=== PATIENT | male | born 1950 | race African-American/Black ===

== ENCOUNTER 2017-05-08 18:22 | Inpatient (IN) | payer OTHER ==
[2017-05-08 19:06] VITALS: BMI 23.6
--- NOTE | 2017-05-08 19:56 | HP ---
Admission ROS [facility] Chief Complaint: i am here for rehab form alcohol,and marijuana Allergies/Adverse Reactions: Allergies Allergy/AdvReac Type Severity Reaction Status Date / Time Penicillins Allergy Severe Swelling Verified 05/08/17 23:07 of the Face History of Present Illness: this 66 years old male with alcohol and marijuana dependence,seking rehab,last treatment in [facility] from 04/24/17 to 05/08/17 neuropathy longest period of sobriety for 11 years nicotine dependence Exam Limitations: No Limitations - Ebola screening Have you traveled outside of the country in the last 21 days: No Have you had contact with anyone from an Ebola affected area: No Have you been sick,other than usual withdrawal symptoms: No Do you have a fever: No - Review of Systems Constitutional: No Symptoms Reported EENT: reports: No Symptoms Reported Respiratory: reports: No Symptoms reported Cardiac: reports: No Symptoms Reported GI: reports: No Symptoms Reported : reports: No Symptoms Reported Musculoskeletal: reports: No Symptoms Reported Integumentary: reports: No Symptoms Reported Neuro: reports: No Symptoms reported Endocrine: reports: No Symptoms Reported Hematology: reports: No Symptoms Reported Psychiatric: reports: No Sypmtoms Reported Other Systems: Reviewed and Negative Patient History - Patient Medical History Hx Anemia: No Hx Asthma: No Hx Chronic Obstructive Pulmonary Disease (COPD): No Hx Cancer: No Hx Cardiac Disorders: No Hx Congestive Heart Failure: No Hx Hypertension: No Hx Hypercholesterolemia: No Hx Pacemaker: No HX Cerebrovascular Accident: No Hx Seizures: No Hx Dementia: No Hx Diabetes: No Hx Gastrointestinal Disorders: No Hx Liver Disease: No Hx Genitourinary Disorders: No Hx Sexually Transmitted Disorders: No Hx Renal Disease (ESRD): No Hx Thyroid Disease: No Hx Human Immunodeficiency Virus (HIV): No (last 03/06 negative) Hx Hepatitis C: No Hx Depression: No Hx Suicide Attempt: No Hx Bipolar Disorder: No Hx Schizophrenia: No Other Medical History: no suicidal,no homicidal - Patient Surgical History Other Surgical History: strabismus right 2002 surgery - PPD History Previous Implant?: Yes Documented Results: Positive w/o proof PPD to be Administered?: No - Smoking Cessation Smoking history: Current every day smoker Have you smoked in the past 12 months: Yes Aproximately how many cigarettes per day: 10 Cigars Per Day: 0 Hx Chewing Tobacco Use: No Initiated information on smoking cessation: Yes 'Breaking Loose' booklet given: 05/08/17 - Substance & Tx. History Hx Alcohol Use: Yes Hx Substance Use: Yes Substance Use Type: Alcohol, Marijuana Hx Substance Use Treatment: Yes ([facility] 04/24/17 to 05/08/17) - Substances Abused Alcohol Route: Oral Frequency: Daily Amount used: 1/2 gallon of whisky Age of first use: 11 Date of Last Use: 04/23/17 Marijuana/Hashish Route: Smoking Frequency: Daily Amount used: 20$ Age of first use: 11 Date of Last Use: 04/23/17 Family Disease History - Family Disease History Family Disease History: Diabetes: Mother (alcohol,), Other: Mother Admission Physical Exam [facility] - Vital Signs Vital Signs: Vital Signs - 24 hr 05/08/17 18:47 Temperature 98.6 F Pulse Rate 81 Respiratory 20 Rate Blood Pressure 146/95 - Physical General Appearance: Yes: Within Normal Limits HEENTM: Yes: Normal ENT Inspection, PLACIDO, Pharynx Normal Respiratory: Yes: Lungs Clear Neck: Yes: Within Normal Limits, Supple, Trachea in good position Breast: Yes: Within Normal Limits Cardiology: Yes: Within Normal Limits, Regular Rhythm, Regular Rate, S1, S2 Abdominal: Yes: Within Normal Limits, Normal Bowel Sounds, Non Tender, Flat, Soft Genitourinary: Yes: Within Normal Limits Back: Yes: Within Normal Limits Musculoskeletal: Yes: Within Normal Limits Extremities: Yes: Within Normal Limits, Normal Range of Motion Neurological: Yes: Within Normal Limits, research environmental engineer II-XII NML intact, Alert, Motor Strength 5/5 Integumentary: Yes: Within Normal Limits Lymphatic: Yes: Within Normal Limits - Diagnostic (1) Alcohol dependence Current Visit: Yes Status: Acute (2) Cannabis dependence Current Visit: Yes Status: Acute (3) Neuropathy Current Visit: Yes Status: Acute (4) Nicotine dependence Current Visit: Yes Status: Acute Cleared for Admission [facility] - Detox or Rehab Claeared for Rehab Admission: Yes [facility] Breath Alcohol Content Breath Alcohol Content: 0 Urine Drug Screen - Results Urine Drug Screen Results: BZO-Benzodiazepines
[2017-05-08] MEDS ORDERED: ACETAMINOPHEN 325 MG TABLET (FP) PO PRN (20:21)
[2017-05-08] MEDS ORDERED: MENTHOL/PHENOL 1 EACH UD MM PRN (20:21)
[2017-05-08] MEDS ORDERED: diphenhydrAMINE HCL 50 MG CAPSULE PO PRN (20:21)
[2017-05-08] MEDS ORDERED: MAGNESIUM HYDROX 2400MG/30ML ORAL SUSPENSION 30 ML CUP PO PRN (20:21)
[2017-05-08] MEDS ORDERED: IBUPROFEN 400 MG TABLET (FP) PO PRN (20:21)
[2017-05-08] MEDS ORDERED: LOPERAMIDE HCL 2 MG CAPSULE PO PRN (20:21)
[2017-05-08] MEDS ORDERED: hydrOXYzine PAMOATE 25 MG CAPSULE (FP) PO PRN (20:21)
[2017-05-08] MEDS ORDERED: P-EPHED 60MG/TRIPROLIDI 2.5MG TABLET PO PRN (20:21)
[2017-05-08] MEDS ORDERED: MAG HYDROX/AL HYDROX/SIMETH 30 ML UNIT-DOSE CUP PO PRN (20:21)
[2017-05-08] MEDS ORDERED: MAGNESIUM CITRATE 300 ML BOTTLE PO PRN (20:21)
[2017-05-08] MEDS: THIAMINE HCL 100 MG TABLET (FP) PO SCH (23:17)
[2017-05-08 23:20] LABS: URINE APPEARANCE CLEAR; URINE BILIRUBIN NEGATIVE (NEGATIVE); URINE BLOOD NEGATIVE (NEGATIVE); URINE COLOR LTYELLOW; URINE GLUCOSE (UA) NEGATIVE (NEGATIVE); URINE KETONE NEGATIVE (NEGATIVE); URINE LEUK ESTERASE NEGATIVE (NEGATIVE); URINE NITRITE NEGATIVE (NEGATIVE); URINE PROTEIN NEGATIVE (NEGATIVE); URINE UROBILINOGEN NEGATIVE mg/dL (0.2-1.0)
--- NOTE | 2017-05-09 09:39 | HP ---
Psychiatrist Admission - Data Date of interview: 05/09/17 Admission source: [facility] Identifying data: This is the first 5n inpatient rehabilitaton admission for this 66 year old male jose maria Black male, unemployed and supported on SSI. Medical History: Neuropathy both legs, H/o fall in the train 20 days ago, surgery for strabismus 200(right side) smokes cigarettes 1/2 PPD. Psychiatric History: Patient reports he met with a psychiatrist after he was discharged from , states was on some medications he is unable to recall. HE currently on Trazodone 100 mg po hs for insomnia states while at [facility] detox. treatment. He denies feeling depressed or anxious. States his sleep is interrupted and unrefreshfull. Physical/Sexual Abuse/Trauma History: Denies history of sexual, physical and verbal abuse. 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 Additional Comment: Reports he was in sobriety 11 years, relapsed year ago after the of his girlfriend(was killed by a drunk freight delivery driver). Vital Signs: Vital Signs - 24 hr 05/08/17 05/08/17 05/09/17 18:47 22:22 00:30 Temperature 98.6 F 98.0 F Pulse Rate 81 83 Respiratory 20 18 18 Rate Blood Pressure 146/95 135/75 05/09/17 05/09/17 03:30 06:35 Temperature 97.4 F L Pulse Rate 74 Respiratory 18 18 Rate Blood Pressure 133/74 Allergies/Adverse Reactions: Allergies Allergy/AdvReac Type Severity Reaction Status Date / Time Penicillins Allergy Severe Swelling Verified 05/08/17 23:07 of the Face Date of last physical exam: 05/08/17 Concur with the findings of this exam: Yes - Substance Abuse/Tx History Hx Alcohol Use: Yes (1/2 gallon of whisky daily) Hx Substance Use: Yes Substance Use Type: Alcohol, Marijuana (daily use for $20) Hx Substance Use Treatment: Yes ([facility] ) - Admission Criteria Previous failed treatment: Yes Poor recovery environment: Yes Comorbidities: No Lacks judgement: Yes Mental Status Exam - Mental Status Exam Alert and Oriented to: Time, Place, Person Cognitive Function: Grossly Intact Patient Appearance: Well Groomed Mood: Hopeful Affect: Appropriate, Mood Congruent Patient Behavior: Appropriate, Cooperative Speech Pattern: Clear, Appropriate Voice Loudness: Normal Thought Process: Intact, Goal Oriented Hallucinations: Denies Suicidal Ideation: Denies Homicidal Ideation: Denies Insight/Judgement: Fair Sleep: Fair Appetite: Weight loss, Weight gain (75 lb over 7 months, relates it to his drinking and smoking marijuana) Muscle strength/Tone: Normal Gait/Station: Normal Psychiatric Findings - Problem List ([place] 1, 2,3) (1) Alcohol dependence Current Visit: Yes Status: Acute (2) Cannabis dependence Current Visit: Yes Status: Acute (3) Neuropathy Current Visit: Yes Status: Acute (4) Nicotine dependence Current Visit: Yes Status: Acute (5) Insomnia Current Visit: Yes Status: Acute - Initial Treatment Plan Initial Treatment Plan: will increase Trazodone 150 mg po hs, monitor progress as needed.
[2017-05-09] MEDS: PRENATAL VITAMINS W/ FOLIC ACID TABLET (FP) PO SCH (09:43)
[2017-05-09] MEDS: GABAPENTIN 600 MG PO SCH ×3 (09:44→21:16)
[2017-05-09] MEDS ORDERED: GABAPENTIN 600 MG PO SCH (10:00)
[2017-05-09 10:01] LABS: MCH 29.8 pg (25.7-33.7); MCHC 32.9 g/dl (32.0-35.9); MEAN CELL VOLUME 90.5 fl (80-96); MEAN PLT VOLUME 8.6 fl (7.5-11.1); PLATELET COUNT 216 K/MM3 (134-434); RDW 14.9 % (11.9-15.9); WHITE BLOOD COUNT 5.5 K/mm3 (4.0-10.0)
[2017-05-09 10:11] LABS: ALBUMIN 3.8 g/dl (3.4-5.0); ANION GAP 6 (8-16); CALCIUM 9.8 mg/dL (8.5-10.1); CO2 29 mmol/L (21-32)
[2017-05-09 10:15] LABS: ALK PHOS 84 U/L (45-117); BILIRUBIN,TOTAL 0.3 mg/dL (0.2-1.0); CREATININE 1.1 mg/dL (0.7-1.3); GLUCOSE,RANDOM 75 mg/dL (74-106); SGOT/AST 19 U/L (15-37); SGPT/ALT 24 U/L (12-78); TOT PROT 7.6 g/dl (6.4-8.2)
--- NOTE | 2017-05-09 16:38 | EKG ---
Test Reason : Blood Pressure : / mmHG Vent. Rate : 078 BPM Atrial Rate : 078 BPM P-R Int : 128 ms QRS Dur : 088 ms QT Int : 378 ms P-R-T Axes : 072 061 068 degrees QTc Int : 430 ms SINUS RHYTHM WITH SINUS ARRHYTHMIA WITH OCCASIONAL PREMATURE VENTRICULAR COMPLEXES OTHERWISE NORMAL ECG NO PREVIOUS ECGS AVAILABLE Confirmed by WAGNER COLES MD ([id number]) on 05/09/2017 4:37:46 PM Referred By: Confirmed By:WAGNER COLES MD
[2017-05-09] MEDS: traZODone HCL 50 MG TABLET (FP) PO SCH (21:16)
[2017-05-09] MEDS: THIAMINE HCL 100 MG TABLET (FP) PO SCH (21:17)
[2017-05-10] MEDS: GABAPENTIN 600 MG PO SCH ×3 (06:32→21:09)
[2017-05-10] MEDS: PRENATAL VITAMINS W/ FOLIC ACID TABLET (FP) PO SCH (10:00)
[2017-05-10] MEDS ORDERED: GABAPENTIN 300 MG CAPSULE (FP) PO SCH (10:00)
[2017-05-10] MEDS: traZODone HCL 50 MG TABLET (FP) PO SCH (21:09)
[2017-05-10] MEDS: THIAMINE HCL 100 MG TABLET (FP) PO SCH (21:09)
[2017-05-11] MEDS: GABAPENTIN 600 MG PO SCH ×3 (06:40→21:19)
[2017-05-11] MEDS: PRENATAL VITAMINS W/ FOLIC ACID TABLET (FP) PO SCH (10:00)
[2017-05-11] MEDS: THIAMINE HCL 100 MG TABLET (FP) PO SCH (21:20)
[2017-05-11] MEDS: traZODone HCL 50 MG TABLET (FP) PO SCH (21:20)
[2017-05-12] MEDS: GABAPENTIN 600 MG PO SCH ×3 (06:31→21:20)
[2017-05-12] MEDS: PRENATAL VITAMINS W/ FOLIC ACID TABLET (FP) PO SCH (09:55)
[2017-05-12] MEDS: THIAMINE HCL 100 MG TABLET (FP) PO SCH (21:20)
[2017-05-12] MEDS: traZODone HCL 50 MG TABLET (FP) PO SCH (21:20)
[2017-05-13] MEDS: GABAPENTIN 600 MG PO SCH ×3 (06:01→21:31)
[2017-05-13] MEDS: PRENATAL VITAMINS W/ FOLIC ACID TABLET (FP) PO SCH (09:57)
[2017-05-13] MEDS: traZODone HCL 50 MG TABLET (FP) PO SCH (21:31)
[2017-05-13] MEDS: THIAMINE HCL 100 MG TABLET (FP) PO SCH (21:31)
[2017-05-14] MEDS: GABAPENTIN 600 MG PO SCH ×3 (05:46→21:21)
[2017-05-14] MEDS: PRENATAL VITAMINS W/ FOLIC ACID TABLET (FP) PO SCH (09:55)
[2017-05-14] MEDS: THIAMINE HCL 100 MG TABLET (FP) PO SCH (21:20)
[2017-05-14] MEDS: traZODone HCL 50 MG TABLET (FP) PO SCH (21:21)
[2017-05-15] MEDS: GABAPENTIN 600 MG PO SCH ×3 (06:18→21:14)
[2017-05-15] MEDS: PRENATAL VITAMINS W/ FOLIC ACID TABLET (FP) PO SCH (09:46)
[2017-05-15] MEDS: THIAMINE HCL 100 MG TABLET (FP) PO SCH (21:13)
[2017-05-15] MEDS: traZODone HCL 50 MG TABLET (FP) PO SCH (21:14)
[2017-05-16] MEDS: GABAPENTIN 600 MG PO SCH ×3 (06:20→21:16)
[2017-05-16] MEDS: PRENATAL VITAMINS W/ FOLIC ACID TABLET (FP) PO SCH (09:54)
[2017-05-16] MEDS: THIAMINE HCL 100 MG TABLET (FP) PO SCH (21:16)
[2017-05-16] MEDS: traZODone HCL 50 MG TABLET (FP) PO SCH (21:16)
[2017-05-17] MEDS: GABAPENTIN 600 MG PO SCH ×3 (06:25→21:23)
[2017-05-17] MEDS: PRENATAL VITAMINS W/ FOLIC ACID TABLET (FP) PO SCH (09:53)
[2017-05-17] MEDS: guaiFENesin/D-METHORPHAN HB 10 ML UNIT-DOSE CUPS PO PRN (09:55)
[2017-05-17] MEDS: traZODone HCL 50 MG TABLET (FP) PO SCH (21:22)
[2017-05-17] MEDS: THIAMINE HCL 100 MG TABLET (FP) PO SCH (21:22)
[2017-05-18] MEDS: GABAPENTIN 600 MG PO SCH ×3 (06:12→21:31)
[2017-05-18] MEDS: PRENATAL VITAMINS W/ FOLIC ACID TABLET (FP) PO SCH (09:55)
[2017-05-18] MEDS: traZODone HCL 50 MG TABLET (FP) PO SCH (21:31)
[2017-05-18] MEDS: THIAMINE HCL 100 MG TABLET (FP) PO SCH (21:31)
[2017-05-19] MEDS: GABAPENTIN 600 MG PO SCH ×3 (05:51→21:27)
[2017-05-19] MEDS: guaiFENesin/D-METHORPHAN HB 10 ML UNIT-DOSE CUPS PO PRN ×2 (06:29→13:07)
[2017-05-19] MEDS: PRENATAL VITAMINS W/ FOLIC ACID TABLET (FP) PO SCH (09:59)
[2017-05-19] MEDS: traZODone HCL 50 MG TABLET (FP) PO SCH (21:26)
[2017-05-19] MEDS: THIAMINE HCL 100 MG TABLET (FP) PO SCH (21:27)
[2017-05-20] MEDS: GABAPENTIN 600 MG PO SCH ×3 (05:52→21:22)
[2017-05-20] MEDS: PRENATAL VITAMINS W/ FOLIC ACID TABLET (FP) PO SCH (09:58)
[2017-05-20] MEDS: traZODone HCL 50 MG TABLET (FP) PO SCH (21:22)
[2017-05-20] MEDS: THIAMINE HCL 100 MG TABLET (FP) PO SCH (21:22)
[2017-05-20] MEDS: guaiFENesin/D-METHORPHAN HB 10 ML UNIT-DOSE CUPS PO PRN (21:23)
[2017-05-21] MEDS: GABAPENTIN 600 MG PO SCH ×3 (06:14→21:32)
[2017-05-21] MEDS: PRENATAL VITAMINS W/ FOLIC ACID TABLET (FP) PO SCH (10:41)
[2017-05-21] MEDS: traZODone HCL 50 MG TABLET (FP) PO SCH (21:32)
[2017-05-21] MEDS: THIAMINE HCL 100 MG TABLET (FP) PO SCH (21:32)
[2017-05-22] MEDS: GABAPENTIN 600 MG PO SCH ×3 (06:40→21:32)
[2017-05-22 07:27] VITALS: PULSE 74
[2017-05-22] MEDS: PRENATAL VITAMINS W/ FOLIC ACID TABLET (FP) PO SCH (09:59)
[2017-05-22] MEDS: traZODone HCL 50 MG TABLET (FP) PO SCH (21:31)
[2017-05-22] MEDS: THIAMINE HCL 100 MG TABLET (FP) PO SCH (21:31)
[2017-05-23] MEDS: GABAPENTIN 600 MG PO SCH (05:51)
[2017-05-23 06:57] VITALS: BP 102/72; TEMP 97.6
[2017-05-23] MEDS: PRENATAL VITAMINS W/ FOLIC ACID TABLET (FP) PO SCH (09:24)
--- NOTE | 2017-05-23 13:34 | PN ---
Psychiatric Progress Note Vital Signs: Vital Signs Period Temp Pulse Resp BP Sys/Anders Pulse Ox Last 24 Hr 97.6 F 74 18-18 102/72 Date of Session: 05/23/17 Chief Complaint:: discharge vist HPI: Patient has addressed alcohol, cannabis, nicotine dependence comorbid insomnia. ROS: Neuropathy medically managed. Current Side Effect: No Lab tests ordered: No Lab tests reviewed: Yes Provider note:: Patient has completed today his treatment and met his goals, will continue to address his issues at [facility] program, he gained insights into his addiction and verbalized resolution to stay away from alcohol/drugs. He understands the negative consequences of his addiction on his majior life areas as well th e importance of utilization all supports availlable to prevent relapses.Trazodone well tolareted, patient reports he sleeps much better ,no side-effects reported, scripts provided, patient is stable for discharge today. Total face to face time:: 35 Mental Status Exam - Mental Status Exam Alert and Oriented to: Time, Place, Person Cognitive Function: Good Patient Appearance: Well Groomed Mood: Hopeful Affect: Appropriate, Mood Congruent Patient Behavior: Appropriate, Cooperative Speech Pattern: Clear, Appropriate Voice Loudness: Normal Thought Process: Intact, Goal Oriented Thought Disorder: Not Present Hallucinations: Denies Suicidal Ideation: Denies Homicidal Ideation: Denies Insight/Judgement: Fair Sleep: Well Appetite: Fair Muscle strength/Tone: Normal Gait/Station: Normal
== END 2017-05-23 09:20 | disposition home or self-care (01) | DRG 895 ==
LOC: YASAS 18:22 → Y5N 18:59
PROVIDERS: ADMIT Psychiatry & Neurology Psychiatry; ATTEND Psychiatry & Neurology Psychiatry
PROC: HZ42ZZZ Group Counseling for Substance Abuse Treatment, Cognitive-Behavioral (ICD-10-PCS; principal; 2017-05-08)
DX: F10.20 Alcohol dependence, uncomplicated (principal); F12.20 Cannabis dependence, uncomplicated; F17.210 Nicotine dependence, cigarettes, uncomplicated; G62.9 Polyneuropathy, unspecified; G47.00 Insomnia, unspecified; Z88.0 Allergy status to penicillin
CPT/HCPCS: 36415; 71020-TC; 80053; 81003; 85027; 86593; 93005; 93010